=== PATIENT | female | born 1955 | race Caucasian/White ===

== ENCOUNTER 2021-08-13 14:41 | Emergency (ER) | payer OTHER, MEDICARE | END 2021-08-13 16:50 | disposition home or self-care (01) | LOC: JD.ED 14:41 | DX: S06.9X9A Unspecified intracranial injury with loss of consciousness of unspecified duration, initial encounter (principal); S00.83XA Contusion of other part of head, initial encounter; M54.6 Pain in thoracic spine; E11.9 Type 2 diabetes mellitus without complications; Z88.1 Allergy status to other antibiotic agents; Z72.0 Tobacco use; W18.09XA Striking against other object with subsequent fall, initial encounter; Y99.0 Civilian activity done for income or pay | CPT/HCPCS: 70450; 70450-26; 71046; 71046-26; 72125; 72125-26; 99284; 99284-25 ==

== ENCOUNTER 2023-03-23 13:50 | Inpatient (IN) | payer MEDICARE, OTHER ==
[2023-03-23 14:50] LABS: BASOPHILS PERCENT AUTO 0.4 % (0.0-1.0); EOSINOPHILS PERCENT AUTO 0.5 % (0.0-6.0); HEMATOCRIT 36.7 % (37.0-47.0); IMMATURE GRAN ABSOLUTE AUTO 0.02 K/mm3 (0.00-0.05); IMMATURE GRAN PERCENT AUTO 0.2 % (0.0-0.4); LYMPHOCYTES ABSOLUTE AUTO 1.1 K/mm3 (1.0-4.8); LYMPHOCYTES PERCENT AUTO 12.4 % (24.0-44.0); MEAN CORPUSCULAR HEMOGLOBIN 33.1 pg (28.0-32.0); MEAN CORPUSCULAR HGB CONC 32.7 g/dl (32.0-36.0); MEAN CORPUSCULAR VOLUME 101.4 fl (83.0-99.0); MEAN PLATELET VOLUME 12.4 fl (9.4-12.3); MONOCYTES ABSOLUTE AUTO 0.6 K/mm3 (0.0-0.8); MONOCYTES PERCENT AUTO 6.7 % (0.0-8.0); NEUTROPHILS ABSOLUTE AUTO 6.8 K/mm3 (1.8-7.7); NEUTROPHILS PERCENT AUTO 79.8 % (41.0-71.0); PLATELET COUNT,PLT 165 K/mm3 (150-400); RED BLOOD CELL COUNT 3.62 M/mm3 (4.10-5.30); WHITE BLOOD CELL COUNT,WBC 8.56 K/mm3 (3.9-11.3)
[2023-03-23 15:24] LABS: CORONAVIRUS COVID-19 NAA NEGATIVE (NEGATIVE); INFLUENZA A NAA NEGATIVE (NEGATIVE); RESPIRATORY SYNCYTIAL VIR NAA NEGATIVE (NEGATIVE)
[2023-03-23 15:39] LABS: ALBUMIN 3.6 g/dl (3.4-5.0); ANION GAP 21.3 (5-15); BILIRUBIN TOTAL 0.7 mg/dL (0.2-1.0); BUN/CREATININE RATIO 18.8 (14-18); C-REACTIVE PROTEIN 11.4 mg/dL (<1.0); CALCIUM 9.5 mg/dL (8.5-10.1); CREATININE 2.4 mg/dL (0.55-1.02); EST CRCL DRUG DOSING (CG) 20.19 mL/min; POTASSIUM,K 4.3 mEq/L (3.5-5.1); PROTEIN TOTAL,TP 7.4 g/dl (6.4-8.2)
[2023-03-23] MEDS ORDERED: Sodium Chloride 0.9% 1,000 ML IV STA (16:10)
[2023-03-23] MEDS ORDERED: Albuterol/Ipratropium 3.0-0.5 MG/3 ML Neb Soln NEB PRN (16:31)
[2023-03-23] MEDS ORDERED: oxyCODONE 5 MG Tab PO PRN (16:31)
[2023-03-23] MEDS ORDERED: Sodium Chloride 0.9% 1,000 ML IV SCH (17:15)
[2023-03-23] MEDS: Heparin Sodium 5,000 Units/ML Vial SUBCUT SCH ×2 (18:21→23:56)
[2023-03-23 20:09] LABS: APPEARANCE,URINE SLT CLOUDY (Clear); BILIRUBIN,URINE 1+ (Negative); COLOR,URINE YELLOW (Yellow); GLUCOSE,URINE NEGATIVE (Negative); KETONES,URINE TRACE (Negative); LEUKOCYTE ESTERASE,URINE TRACE (Negative); NITRITE,URINE NEGATIVE (Negative); OCCULT BLOOD,URINE NEGATIVE (Negative); PH,URINE 5.5 (5.0-8.0); PROTEIN,URINE 3+ (Negative)
[2023-03-23 20:18] LABS: BACTERIA,URINE MODERATE /hpf (FEW); MUCUS,URINE FEW /hpf (FEW); RBC,URINE 0-5 /hpf (0-5); WBC,URINE 20-30 /hpf (0-5)
[2023-03-23] MEDS: Acetaminophen 325 MG Tab PO PRN (21:21)
[2023-03-23] MEDS: Ondansetron 4 MG Tab.DIS PO PRN (21:22)
[2023-03-24] MEDS: Ondansetron 4 MG Tab.DIS PO PRN (02:59)
[2023-03-24 05:23] LABS: BASOPHILS PERCENT AUTO 0.1 % (0.0-1.0); EOSINOPHILS PERCENT AUTO 0.2 % (0.0-6.0); HEMATOCRIT 37.1 % (37.0-47.0); HEMOGLOBIN 11.9 gm/dl (12.0-16.0); IMMATURE GRAN ABSOLUTE AUTO 0.03 K/mm3 (0.00-0.05); IMMATURE GRAN PERCENT AUTO 0.4 % (0.0-0.4); LYMPHOCYTES ABSOLUTE AUTO 0.7 K/mm3 (1.0-4.8); LYMPHOCYTES PERCENT AUTO 8.8 % (24.0-44.0); MEAN CORPUSCULAR HEMOGLOBIN 32.2 pg (28.0-32.0); MEAN CORPUSCULAR HGB CONC 32.1 g/dl (32.0-36.0); MEAN CORPUSCULAR VOLUME 100.3 fl (83.0-99.0); MEAN PLATELET VOLUME 12.6 fl (9.4-12.3); MONOCYTES ABSOLUTE AUTO 0.4 K/mm3 (0.0-0.8); MONOCYTES PERCENT AUTO 4.9 % (0.0-8.0); NEUTROPHILS PERCENT AUTO 85.6 % (41.0-71.0); PLATELET COUNT,PLT 168 K/mm3 (150-400); WHITE BLOOD CELL COUNT,WBC 8.16 K/mm3 (3.9-11.3)
[2023-03-24 05:28] LABS: ALBUMIN 3.3 g/dl (3.4-5.0); ANION GAP 19.7 (5-15); BILIRUBIN TOTAL 0.5 mg/dL (0.2-1.0); BUN/CREATININE RATIO 23.8 (14-18); CALCIUM 8.8 mg/dL (8.5-10.1); CREATININE 2.1 mg/dL (0.55-1.02); EST CRCL DRUG DOSING (CG) 23.07 mL/min; MAGNESIUM 2.3 mg/dL (1.8-2.4); POTASSIUM,K 4.7 mEq/L (3.5-5.1); PROTEIN TOTAL,TP 6.6 g/dl (6.4-8.2)
[2023-03-24] MEDS: Heparin Sodium 5,000 Units/ML Vial SUBCUT SCH ×3 (08:09→23:30)
[2023-03-24] MEDS ORDERED: Docusate Sodium 100 MG Cap PO PRN (08:28)
[2023-03-24 08:50] LABS: CHOLESTEROL HDL 39 mg/dL (40-59); CHOLESTEROL LDL DIRECT 93 mg/dL (<100); CHOLESTEROL TOTAL 159 mg/dL (<200); TRIGLYCERIDES 65 mg/dL (<150)
[2023-03-24 08:54] LABS: HEMOGLOBIN A1C 6.4 %
[2023-03-24] MEDS ORDERED: Furosemide 20 MG/2 ML VIAL IVPUSH SCH (09:00)
[2023-03-24] MEDS: Docusate Sodium 100 MG Cap PO SCH ×2 (09:15→20:01)
[2023-03-24] MEDS: Polyethylene Glycol 3350 Powder 17 GM Packet PO SCH (09:16)
[2023-03-24] MEDS: Acetaminophen 325 MG Tab PO PRN (13:11)
[2023-03-24] MEDS: Aspirin 81 MG Tab.Chew PO SCH (13:15)
[2023-03-24] MEDS: Furosemide 40 MG/4 ML VIAL IVPUSH SCH (14:55)
[2023-03-24] MEDS: Metoprolol Tartrate 25 MG Tab PO SCH (20:01)
[2023-03-25 05:28] LABS: BASOPHILS PERCENT AUTO 0.2 % (0.0-1.0); EOSINOPHILS PERCENT AUTO 0.2 % (0.0-6.0); HEMATOCRIT 36.2 % (37.0-47.0); HEMOGLOBIN 11.9 gm/dl (12.0-16.0); IMMATURE GRAN ABSOLUTE AUTO 0.03 K/mm3 (0.00-0.05); IMMATURE GRAN PERCENT AUTO 0.3 % (0.0-0.4); LYMPHOCYTES ABSOLUTE AUTO 0.7 K/mm3 (1.0-4.8); LYMPHOCYTES PERCENT AUTO 7.5 % (24.0-44.0); MEAN CORPUSCULAR HEMOGLOBIN 32.7 pg (28.0-32.0); MEAN CORPUSCULAR HGB CONC 32.9 g/dl (32.0-36.0); MEAN CORPUSCULAR VOLUME 99.5 fl (83.0-99.0); MEAN PLATELET VOLUME 12.4 fl (9.4-12.3); MONOCYTES ABSOLUTE AUTO 0.6 K/mm3 (0.0-0.8); MONOCYTES PERCENT AUTO 6.3 % (0.0-8.0); NEUTROPHILS ABSOLUTE AUTO 7.7 K/mm3 (1.8-7.7); NEUTROPHILS PERCENT AUTO 85.5 % (41.0-71.0); PLATELET COUNT,PLT 161 K/mm3 (150-400); RED BLOOD CELL COUNT 3.64 M/mm3 (4.10-5.30); WHITE BLOOD CELL COUNT,WBC 9.06 K/mm3 (3.9-11.3)
[2023-03-25 05:52] LABS: A/G RATIO 1.1 (1-2); ALBUMIN 3.4 g/dl (3.4-5.0); ANION GAP 19.4 (5-15); BILIRUBIN TOTAL 0.6 mg/dL (0.2-1.0); BUN/CREATININE RATIO 27.7 (14-18); CALCIUM 9.1 mg/dL (8.5-10.1); CREATININE 2.2 mg/dL (0.55-1.02); EST CRCL DRUG DOSING (CG) 22.02 mL/min; MAGNESIUM 2.4 mg/dL (1.8-2.4); POTASSIUM,K 4.4 mEq/L (3.5-5.1); PROTEIN TOTAL,TP 6.6 g/dl (6.4-8.2)
[2023-03-25] MEDS ORDERED: Furosemide 20 MG/2 ML VIAL IV SCH (06:00)
[2023-03-25] MEDS: Furosemide 40 MG/4 ML VIAL IVPUSH SCH (06:30)
[2023-03-25] MEDS: Aspirin 81 MG Tab.Chew PO SCH (08:14)
[2023-03-25] MEDS: Docusate Sodium 100 MG Cap PO SCH ×2 (08:15→20:35)
[2023-03-25] MEDS: Polyethylene Glycol 3350 Powder 17 GM Packet PO SCH (08:15)
[2023-03-25] MEDS: Heparin Sodium 5,000 Units/ML Vial SUBCUT SCH (08:15)
[2023-03-25] MEDS: Metoprolol Tartrate 25 MG Tab PO SCH ×2 (08:15→20:35)
[2023-03-25] MEDS: Acetaminophen 325 MG Tab PO PRN (08:16)
[2023-03-25] MEDS ORDERED: Bumetanide 1 MG/4 ML MDV IVPUSH ONE (15:00)
[2023-03-26 05:33] LABS: BASOPHILS PERCENT AUTO 0.4 % (0.0-1.0); EOSINOPHILS ABSOLUTE AUTO 0.1 K/mm3 (0.0-0.4); EOSINOPHILS PERCENT AUTO 1.9 % (0.0-6.0); HEMATOCRIT 34.9 % (37.0-47.0); HEMOGLOBIN 11.4 gm/dl (12.0-16.0); IMMATURE GRAN ABSOLUTE AUTO 0.02 K/mm3 (0.00-0.05); IMMATURE GRAN PERCENT AUTO 0.4 % (0.0-0.4); LYMPHOCYTES ABSOLUTE AUTO 0.7 K/mm3 (1.0-4.8); LYMPHOCYTES PERCENT AUTO 13.8 % (24.0-44.0); MEAN CORPUSCULAR HEMOGLOBIN 32.5 pg (28.0-32.0); MEAN CORPUSCULAR HGB CONC 32.7 g/dl (32.0-36.0); MEAN CORPUSCULAR VOLUME 99.4 fl (83.0-99.0); MEAN PLATELET VOLUME 12.3 fl (9.4-12.3); MONOCYTES ABSOLUTE AUTO 0.4 K/mm3 (0.0-0.8); MONOCYTES PERCENT AUTO 7.6 % (0.0-8.0); NEUTROPHILS ABSOLUTE AUTO 3.7 K/mm3 (1.8-7.7); NEUTROPHILS PERCENT AUTO 75.9 % (41.0-71.0); PLATELET COUNT,PLT 130 K/mm3 (150-400); RED BLOOD CELL COUNT 3.51 M/mm3 (4.10-5.30); WHITE BLOOD CELL COUNT,WBC 4.86 K/mm3 (3.9-11.3)
[2023-03-26 05:45] LABS: A/G RATIO 1.1 (1-2); ALBUMIN 3.3 g/dl (3.4-5.0); ANION GAP 17.8 (5-15); BILIRUBIN TOTAL 0.6 mg/dL (0.2-1.0); CALCIUM 9.1 mg/dL (8.5-10.1); EST CRCL DRUG DOSING (CG) 24.23 mL/min; MAGNESIUM 2.2 mg/dL (1.8-2.4); POTASSIUM,K 3.8 mEq/L (3.5-5.1); PROTEIN TOTAL,TP 6.4 g/dl (6.4-8.2)
[2023-03-26] MEDS: Bumetanide 1 MG/4 ML MDV IVPUSH SCH ×2 (07:26→15:24)
[2023-03-26] MEDS: Acetaminophen 325 MG Tab PO PRN (08:28)
[2023-03-26] MEDS: Polyethylene Glycol 3350 Powder 17 GM Packet PO SCH (08:28)
[2023-03-26] MEDS: Metoprolol Tartrate 25 MG Tab PO SCH ×2 (08:29→21:12)
[2023-03-26] MEDS: Docusate Sodium 100 MG Cap PO SCH ×2 (08:29→21:12)
[2023-03-26] MEDS: Aspirin 81 MG Tab.Chew PO SCH (08:32)
[2023-03-26] MEDS ORDERED: Bumetanide 1 MG/4 ML MDV IVPUSH SCH (09:00)
[2023-03-27 05:26] LABS: BASOPHILS PERCENT AUTO 0.5 % (0.0-1.0); EOSINOPHILS ABSOLUTE AUTO 0.1 K/mm3 (0.0-0.4); EOSINOPHILS PERCENT AUTO 0.9 % (0.0-6.0); HEMATOCRIT 36.4 % (37.0-47.0); HEMOGLOBIN 11.9 gm/dl (12.0-16.0); IMMATURE GRAN ABSOLUTE AUTO 0.02 K/mm3 (0.00-0.05); IMMATURE GRAN PERCENT AUTO 0.3 % (0.0-0.4); LYMPHOCYTES ABSOLUTE AUTO 0.6 K/mm3 (1.0-4.8); LYMPHOCYTES PERCENT AUTO 8.6 % (24.0-44.0); MEAN CORPUSCULAR HEMOGLOBIN 32.5 pg (28.0-32.0); MEAN CORPUSCULAR HGB CONC 32.7 g/dl (32.0-36.0); MEAN CORPUSCULAR VOLUME 99.5 fl (83.0-99.0); MONOCYTES ABSOLUTE AUTO 0.5 K/mm3 (0.0-0.8); MONOCYTES PERCENT AUTO 7.2 % (0.0-8.0); NEUTROPHILS ABSOLUTE AUTO 5.4 K/mm3 (1.8-7.7); NEUTROPHILS PERCENT AUTO 82.5 % (41.0-71.0); PLATELET COUNT,PLT 148 K/mm3 (150-400); RED BLOOD CELL COUNT 3.66 M/mm3 (4.10-5.30); WHITE BLOOD CELL COUNT,WBC 6.49 K/mm3 (3.9-11.3)
[2023-03-27 05:45] LABS: ALBUMIN 3.4 g/dl (3.4-5.0); ANION GAP 13.9 (5-15); BILIRUBIN TOTAL 0.5 mg/dL (0.2-1.0); BUN/CREATININE RATIO 35.3 (14-18); CALCIUM 9.2 mg/dL (8.5-10.1); CREATININE 1.7 mg/dL (0.55-1.02); EST CRCL DRUG DOSING (CG) 28.5 mL/min; MAGNESIUM 2.2 mg/dL (1.8-2.4); POTASSIUM,K 3.9 mEq/L (3.5-5.1); PROTEIN TOTAL,TP 6.8 g/dl (6.4-8.2)
[2023-03-27] MEDS: Bumetanide 1 MG/4 ML MDV IVPUSH SCH ×2 (06:39→13:56)
[2023-03-27] MEDS: Aspirin 81 MG Tab.Chew PO SCH (09:10)
[2023-03-27] MEDS: Polyethylene Glycol 3350 Powder 17 GM Packet PO SCH (09:10)
[2023-03-27] MEDS: Metoprolol Tartrate 25 MG Tab PO SCH (09:11)
[2023-03-27] MEDS: Docusate Sodium 100 MG Cap PO SCH ×2 (09:11→20:54)
[2023-03-27] MEDS ORDERED: Albuterol/Ipratropium 3.0-0.5 MG/3 ML Neb Soln NEB PRN (17:36)
[2023-03-27] MEDS: guaiFENesin 600 MG Tab.ER PO SCH ×3 (18:01→20:57)
[2023-03-27] MEDS: Albuterol/Ipratropium 3.0-0.5 MG/3 ML Neb Soln NEB SCH (20:18)
[2023-03-27] MEDS: Budesonide 0.5 MG/2 ML Neb Susp NEB SCH (20:18)
[2023-03-28] MEDS: Metoprolol Tartrate 25 MG Tab PO SCH ×3 (00:56→20:31)
[2023-03-28 05:37] LABS: BASOPHILS PERCENT AUTO 0.6 % (0.0-1.0); EOSINOPHILS PERCENT AUTO 0.8 % (0.0-6.0); HEMATOCRIT 35.2 % (37.0-47.0); HEMOGLOBIN 11.9 gm/dl (12.0-16.0); IMMATURE GRAN ABSOLUTE AUTO 0.01 K/mm3 (0.00-0.05); IMMATURE GRAN PERCENT AUTO 0.2 % (0.0-0.4); LYMPHOCYTES ABSOLUTE AUTO 0.6 K/mm3 (1.0-4.8); LYMPHOCYTES PERCENT AUTO 12.4 % (24.0-44.0); MEAN CORPUSCULAR HEMOGLOBIN 33.1 pg (28.0-32.0); MEAN CORPUSCULAR HGB CONC 33.8 g/dl (32.0-36.0); MEAN CORPUSCULAR VOLUME 98.1 fl (83.0-99.0); MONOCYTES ABSOLUTE AUTO 0.4 K/mm3 (0.0-0.8); MONOCYTES PERCENT AUTO 8.3 % (0.0-8.0); NEUTROPHILS PERCENT AUTO 77.7 % (41.0-71.0); PLATELET COUNT,PLT 137 K/mm3 (150-400); RED BLOOD CELL COUNT 3.59 M/mm3 (4.10-5.30); WHITE BLOOD CELL COUNT,WBC 5.16 K/mm3 (3.9-11.3)
[2023-03-28 05:56] LABS: ALBUMIN 3.3 g/dl (3.4-5.0); ANION GAP 13.5 (5-15); BILIRUBIN TOTAL 0.6 mg/dL (0.2-1.0); BUN/CREATININE RATIO 32.3 (14-18); CALCIUM 9.2 mg/dL (8.5-10.1); CREATININE 1.3 mg/dL (0.55-1.02); EST CRCL DRUG DOSING (CG) 37.27 mL/min; POTASSIUM,K 3.5 mEq/L (3.5-5.1); PROTEIN TOTAL,TP 6.6 g/dl (6.4-8.2)
[2023-03-28] MEDS: Albuterol/Ipratropium 3.0-0.5 MG/3 ML Neb Soln NEB SCH ×4 (06:20→20:00)
[2023-03-28] MEDS: Budesonide 0.5 MG/2 ML Neb Susp NEB SCH ×2 (06:21→20:06)
[2023-03-28] MEDS: Bumetanide 1 MG/4 ML MDV IVPUSH SCH ×2 (06:46→13:28)
[2023-03-28] MEDS: Docusate Sodium 100 MG Cap PO SCH ×2 (09:00→20:31)
[2023-03-28] MEDS: Polyethylene Glycol 3350 Powder 17 GM Packet PO SCH (09:00)
[2023-03-28] MEDS: Aspirin 81 MG Tab.Chew PO SCH (09:08)
[2023-03-28] MEDS: guaiFENesin 600 MG Tab.ER PO SCH ×2 (09:08→20:30)
[2023-03-28] MEDS: Spironolactone 25 MG Tab PO SCH (13:28)
[2023-03-29] MEDS: Ondansetron 4 MG Tab.DIS PO PRN (02:16)
[2023-03-29] MEDS: Albuterol/Ipratropium 3.0-0.5 MG/3 ML Neb Soln NEB SCH ×4 (06:09→20:40)
[2023-03-29] MEDS: Budesonide 0.5 MG/2 ML Neb Susp NEB SCH ×2 (06:13→20:40)
[2023-03-29 06:37] LABS: ANION GAP 17.7 (5-15); BUN/CREATININE RATIO 34.5 (14-18); CALCIUM 9.8 mg/dL (8.5-10.1); CREATININE 1.1 mg/dL (0.55-1.02); EST CRCL DRUG DOSING (CG) 44.05 mL/min; POTASSIUM,K 3.7 mEq/L (3.5-5.1)
[2023-03-29] MEDS: Bumetanide 1 MG/4 ML MDV IVPUSH SCH (06:54)
[2023-03-29] MEDS ORDERED: guaiFENesin/Dextromethorphan 100-10 MG/5 ML Soln 5 ML Cup PO ONE (08:05)
[2023-03-29] MEDS: guaiFENesin 600 MG Tab.ER PO SCH (08:12)
[2023-03-29] MEDS: Aspirin 81 MG Tab.Chew PO SCH (08:13)
[2023-03-29] MEDS: Spironolactone 25 MG Tab PO SCH (08:13)
[2023-03-29] MEDS: Metoprolol Tartrate 25 MG Tab PO SCH ×2 (08:13→21:20)
[2023-03-29] MEDS: Docusate Sodium 100 MG Cap PO SCH ×2 (08:13→21:12)
[2023-03-29] MEDS ORDERED: Losartan 25 MG Tab PO SCH (10:00)
[2023-03-29] MEDS: Bumetanide 1 MG Tab PO SCH (13:59)
[2023-03-29] MEDS: guaiFENesin/Dextromethorphan 100-10 MG/5 ML Soln 5 ML Cup PO SCH ×2 (13:59→21:21)
[2023-03-29] MEDS ORDERED: Sodium Chloride 0.9% 250 ML IV ONE ×2 (21:29→23:16)
[2023-03-30] MEDS: Albuterol/Ipratropium 3.0-0.5 MG/3 ML Neb Soln NEB SCH ×4 (05:39→21:14)
[2023-03-30] MEDS: Budesonide 0.5 MG/2 ML Neb Susp NEB SCH ×2 (05:39→21:14)
[2023-03-30] MEDS: guaiFENesin/Dextromethorphan 100-10 MG/5 ML Soln 5 ML Cup PO SCH ×3 (06:20→20:47)
[2023-03-30] MEDS: Bumetanide 1 MG Tab PO SCH (06:21)
[2023-03-30 06:28] LABS: BUN/CREATININE RATIO 32.7 (14-18); CREATININE 1.1 mg/dL (0.55-1.02); EST CRCL DRUG DOSING (CG) 44.05 mL/min
[2023-03-30] MEDS: Aspirin 81 MG Tab.Chew PO SCH (08:55)
[2023-03-30] MEDS: Metoprolol Tartrate 25 MG Tab PO SCH ×2 (08:55→20:47)
[2023-03-30] MEDS: Spironolactone 25 MG Tab PO SCH (08:55)
[2023-03-30] MEDS: Docusate Sodium 100 MG Cap PO SCH ×2 (08:56→20:47)
[2023-03-30] MEDS ORDERED: Potassium Chloride 20 MEQ Tab.ER PO ONE (09:00)
[2023-03-30] MEDS ORDERED: Bumetanide 1 MG Tab PO SCH (14:00)
[2023-03-30] MEDS ORDERED: Potassium Chloride 20 MEQ Tab.ER PO SCH (21:00)
[2023-03-31] MEDS: Ondansetron 4 MG Tab.DIS PO PRN (01:22)
[2023-03-31] MEDS: Albuterol/Ipratropium 3.0-0.5 MG/3 ML Neb Soln NEB SCH ×2 (05:16→09:48)
[2023-03-31] MEDS: Budesonide 0.5 MG/2 ML Neb Susp NEB SCH (05:16)
[2023-03-31 05:35] LABS: BASOPHILS PERCENT AUTO 0.2 % (0.0-1.0); EOSINOPHILS PERCENT AUTO 0.1 % (0.0-6.0); HEMATOCRIT 38.6 % (37.0-47.0); HEMOGLOBIN 12.5 gm/dl (12.0-16.0); IMMATURE GRAN ABSOLUTE AUTO 0.06 K/mm3 (0.00-0.05); IMMATURE GRAN PERCENT AUTO 0.5 % (0.0-0.4); LYMPHOCYTES ABSOLUTE AUTO 0.8 K/mm3 (1.0-4.8); MEAN CORPUSCULAR HEMOGLOBIN 32.3 pg (28.0-32.0); MEAN CORPUSCULAR HGB CONC 32.4 g/dl (32.0-36.0); MEAN CORPUSCULAR VOLUME 99.7 fl (83.0-99.0); MEAN PLATELET VOLUME 11.9 fl (9.4-12.3); MONOCYTES ABSOLUTE AUTO 0.5 K/mm3 (0.0-0.8); MONOCYTES PERCENT AUTO 3.7 % (0.0-8.0); NEUTROPHILS ABSOLUTE AUTO 11.7 K/mm3 (1.8-7.7); NEUTROPHILS PERCENT AUTO 89.5 % (41.0-71.0); PLATELET COUNT,PLT 201 K/mm3 (150-400); RED BLOOD CELL COUNT 3.87 M/mm3 (4.10-5.30)
[2023-03-31 05:53] LABS: CALCIUM 9.6 mg/dL (8.5-10.1); CREATININE 1.5 mg/dL (0.55-1.02); EST CRCL DRUG DOSING (CG) 32.3 mL/min
[2023-03-31 06:41] LABS: ANION GAP 17.4 (5-15)
[2023-03-31 06:57] LABS: POTASSIUM,K 5.4 mEq/L (3.5-5.1)
[2023-03-31] MEDS: guaiFENesin/Dextromethorphan 100-10 MG/5 ML Soln 5 ML Cup PO SCH (07:54)
[2023-03-31] MEDS ORDERED: Benzonatate 100 MG Cap PO PRN (08:00)
[2023-03-31] MEDS ORDERED: cefTRIAXone 2 GM in Sodium Chloride 0.9% 100 ML IV SCH (08:30)
[2023-03-31] MEDS ORDERED: Bumetanide 1 MG Tab PO SCH (09:00)
[2023-03-31] MEDS: Docusate Sodium 100 MG Cap PO SCH (09:15)
[2023-03-31] MEDS: Spironolactone 25 MG Tab PO SCH (09:16)
[2023-03-31] MEDS: Aspirin 81 MG Tab.Chew PO SCH (09:16)
[2023-03-31] MEDS: Metoprolol Tartrate 25 MG Tab PO SCH (09:20)
[2023-03-31] MEDS ORDERED: Ondansetron 4 MG/2 ML SDV IVPUSH PRN (09:31)
[2023-03-31] MEDS ORDERED: Bumetanide 1 MG/4 ML MDV IVPUSH ONE (10:24)
[2023-03-31] MEDS ORDERED: Azithromycin 500 MG in Sodium Chloride 0.9% 250 ML IV SCH (12:00)
[2023-03-31] MEDS ORDERED: EPINEPHrine 1:10,000 1 MG/10 ML Syringe IVPUSH ONE (13:15)
== END 2023-03-31 13:20 | disposition expired ==
LOC: JD.ED 13:50 → JD.MS 16:31 → UNDOADMIN 16:59 → JD.MS 16:59 → UNDODISIN 03-31 13:20
PROVIDERS: ADMIT Internal Medicine; ATTEND Pediatrics
PROC: 3E033XZ Introduction of Vasopressor into Peripheral Vein, Percutaneous Approach (ICD-10-PCS; principal; 2023-03-31)
DX: I50.43 Acute on chronic combined systolic (congestive) and diastolic (congestive) heart failure (principal); I21.A1 Myocardial infarction type 2; E87.1 Hypo-osmolality and hyponatremia; Z66 Do not resuscitate; I46.9 Cardiac arrest, cause unspecified; N18.9 Chronic kidney disease, unspecified; E11.22 Type 2 diabetes mellitus with diabetic chronic kidney disease; J44.9 Chronic obstructive pulmonary disease, unspecified; I08.1 Rheumatic disorders of both mitral and tricuspid valves; E86.0 Dehydration; R82.71 Bacteriuria; R74.01 Elevation of levels of liver transaminase levels; I95.9 Hypotension, unspecified; I44.7 Left bundle-branch block, unspecified; Z11.52 Encounter for screening for COVID-19; Z88.1 Allergy status to other antibiotic agents; Z87.81 Personal history of (healed) traumatic fracture; Z90.49 Acquired absence of other specified parts of digestive tract; Z87.891 Personal history of nicotine dependence
CPT/HCPCS: 0241U; 36415; 71046; 71046-26; 71250; 71250-26; 80048; 80053; 80061; 81001; 83036; 83735; 83880; 84145; 84484; 85025; 85379; 86140; 87086; 93005; 93010; 93307; 93970; 93970-26; 94640; 94667; 94668; 94760; 94761; 94762; 97110-GP; 97116-GP; 97161-GP; 99223; 99233; 99238; 99285; A9270-GY; J0171; J0456; J0696; J1644; J1940; J2405; J3490; J7030; J7050; J7620-GY